=== PATIENT | female | born 1940 | race Caucasian/White ===

== ENCOUNTER 2019-03-07 09:56 | Inpatient (IN) | payer MEDICARE, BC ==
[2019-03-07] VITALS (14 sets, daily range): BP systolic 64–151; BP diastolic 3–83
[~2019-03-07] VITALS: Ht 157.5 cm; Wt 90.0 kg
--- NOTE | 2019-03-07 10:26 | NUR ---
PT SON MADELINE NARINDER CALLED CELL# [phone], REQUESTING CALL WHEN PLAN OF CARE OR ADMISSION IS DETERMINED.
--- NOTE | 2019-03-07 11:49 | NUR ---
[facility] REPORTED POSITIVE BLOOD CULTURE. GRAM NEG RODS. GUANAKITO MOSLEY RN AND DR. LOZANO
[2019-03-07] MEDS ORDERED: normal saline 1000ml 1,000 ML IV ONE (11:50)
[2019-03-07] MEDS ORDERED: LOSA100T57 PO (12:37)
[2019-03-07] MEDS ORDERED: ASPI-611 PO (12:37)
[2019-03-07] MEDS ORDERED: CARV6.253 PO (12:37)
[2019-03-07] MEDS ORDERED: ATOR20TA66 PO (12:37)
[2019-03-07] MEDS ORDERED: CITA20TA2 PO (12:37)
[2019-03-07] MEDS ORDERED: ACET-1013 PO (12:46)
[2019-03-07 12:48] LABS: BASOPHILS % (AUTO) 0.2 % (0-1); EOSINOPHILS % (AUTO) 0.1 % (0-6); HEMOGLOBIN 11.2 g/dl (12.0-16.0); LYMPHOCYTES # (AUTO) 0.6 X10'3 (1.1-4.8); LYMPHOCYTES % (AUTO) 4.5 % (21-51); MEAN CORPUSCULAR HEMOGLOBIN 30.5 PG (27.0-31.0); MEAN CORPUSCULAR HGB CONC 32.9 g/dL (33.0-36.5); MEAN CORPUSCULAR VOLUME 92.7 FL (78-98); MEAN PLATELET VOLUME 8.3 FL (7.4-10.4); MONOCYTES # (AUTO) 0.7 X10'3 (0-0.9); NEUTROPHILS # (AUTO) 10.8 X10'3 (1.8-7.7); NEUTROPHILS % (AUTO) 89.2 % (42-75); PLATELET COUNT 153 X10'3 (140-440); RED BLOOD COUNT 3.66 X10'6 (4.20-5.60); RED CELL DISTRIBUTION WIDTH 13.4 % (11.5-14.5); WHITE BLOOD COUNT 12.1 X10'3 (4.5-11.0)
[2019-03-07 13:00] LABS: ALANINE AMINOTRANSFERASE 28 U/L (12-78); ALBUMIN 2.8 G/DL (3.4-5.0); ALBUMIN/GLOBULIN RATIO 0.7 (1.1-1.5); ALKALINE PHOSPHATASE 68 IU/L (46-116); ANION GAP 2 (8-16); ASPARTATE AMINO TRANSFERASE 33 U/L (10-37); BILIRUBIN,TOTAL 0.5 MG/DL (0.1-1.0); BLOOD UREA NITROGEN 32 MG/DL (7-18); BUN/CREATININE RATIO 16.2 (6.6-38.0); CALCIUM 8.7 MG/DL (8.5-10.1); CHLORIDE 102 MMOL/L (99-107); CREATININE 1.98 MG/DL (0.40-0.90); GLUCOSE 194 MG/DL (70-104); MAGNESIUM 1.6 MG/DL (1.5-2.4); POTASSIUM 4.4 MMOL/L (3.5-5.1); SODIUM 134 MMOL/L (135-145); TOTAL CARBON DIOXIDE 29.8 MMOL/L (24-32); TOTAL PROTEIN 6.7 G/DL (6.4-8.2); eGFR 24 ML/MIN
[2019-03-07] MEDS ORDERED: labetalol 20mg/4ml (5mg/ml) syringe IV ONE (13:20)
--- NOTE | 2019-03-07 13:27 | NUR ---
DR CALDERON IN ROOM TO EVAL PT FOR PROCEDURE. ADMIN MEDICATION ORDERED BY DR LOZANO FOR HTN.
[2019-03-07] MEDS ORDERED: HYDROcodone/acetaminophen 5mg/325mg tablet PO PRN (13:30)
[2019-03-07] MEDS ORDERED: potassium Cl 20 mEq SR tablet PO PRN ×2 (13:30)
[2019-03-07] MEDS ORDERED: magnesium 4gm in 100ml NS 100 ML IV PRN (13:30)
[2019-03-07] MEDS ORDERED: magnesium 2GM in 50ml NS 50 ML IV PRN (13:30)
[2019-03-07] MEDS ORDERED: ondansetron/PF 4mg/2ml inj IV PRN ×2 (13:30→16:00)
[2019-03-07] MEDS ORDERED: magnesium Cl slow-release 64mg tablet PO PRN (13:30)
[2019-03-07] MEDS ORDERED: HYDROcodone/acetaminophen 10/325mg tab PO PRN (13:30)
[2019-03-07] MEDS ORDERED: potassium CL 10mEq/100ml bag 100 ML IV PRN ×2 (13:30)
[2019-03-07] MEDS ORDERED: morphine 2 MG/ML inj. syringe IV PRN ×2 (13:30)
[2019-03-07] MEDS ORDERED: acetaminophen 325mg tablet PO PRN ×2 (13:30)
[2019-03-07] MEDS: normal saline 1000ml 1,000 ML IV SCH (13:48)
[2019-03-07] MEDS: K and/or MAG REPLACEMENT MC SCH (13:49)
--- NOTE | 2019-03-07 13:54 | NUR ---
ASSIST PT TO BSC TO VOID. PT DENIES PAIN.
--- NOTE | 2019-03-07 14:12 | NUR ---
GAY NURSE IN ROOM
[2019-03-07 14:35] LABS: HEMOGLOBIN A1C 9.4 % (4.5-6.2)
[2019-03-07] MEDS ORDERED: glucagon, human recombinant 1mg kit SUBCUT PRN (15:10)
[2019-03-07] MEDS ORDERED: dextrose ORAL solution 15 GM/59 ML bottle PO PRN ×2 (15:10)
[2019-03-07] MEDS ORDERED: MESSAGE TO PHARMACY PO ONE (15:10)
[2019-03-07] MEDS ORDERED: dextrose 50%-water 50ml dispensing syringe IV PRN ×2 (15:10)
--- NOTE | 2019-03-07 15:41 | NUR ---
PT'S SON'S LEAVE THE PHONE NUMBERS AND ARE GONE NOW. FIDENCIO: [phone]. NIYAH: [phone].
--- NOTE | 2019-03-07 15:43 | NUR ---
GEOVANY FROM OR CALLS WITH INSTRUCTIONS. EKG IS BEING DONE.
[2019-03-07] MEDS ORDERED: ringers solution, lacted 1,000 ML IV SCH (15:56)
--- NOTE | 2019-03-07 15:58 | NUR ---
ASSIST PT TO BSC TO VOID PER HER REQUEST. PT IS NOW BEING TAKEN TO SURGERY BY QUINTON.
--- NOTE | 2019-03-07 15:59 | NUR ---
PER OR'S REQUEST BY GEOVANY THE KIMSYN ABX HAS BEEN SENT UP WITH PT.
[2019-03-07] MEDS ORDERED: proCHLORperazine 10 MG/2 ml inj IV PRN (16:00)
[2019-03-07] MEDS ORDERED: morphine 4 MG/ML inj SYRINge IV PRN ×2 (16:00)
[2019-03-07] MEDS ORDERED: meperidine/PF 25mg/ml syringe IV PRN ×3 (16:00)
[2019-03-07] MEDS ORDERED: iohexol 300 MG/1 ML 50ml polymer ONE (16:03)
[2019-03-07] MEDS ORDERED: sevoflurane 250ml liquid IH ONE (16:08)
[2019-03-07] MEDS ORDERED: ondansetron/PF 4mg/2ml inj ONE (16:08)
[2019-03-07] MEDS ORDERED: dexamethasone sod phosphate 10mg/ml inj ONE (16:08)
[2019-03-07] MEDS ORDERED: fentaNYL/PF 50MCG/1 ML 2ML syringe ONE (16:16)
[2019-03-07] MEDS ORDERED: midazolam 2 mg/2 ml injection ONE (16:16)
[2019-03-07] MEDS ORDERED: propofol inj 20 ML IV ONE (16:17)
[2019-03-07] MEDS ORDERED: LIDOcaine 2% (20mg/ml) 5ml vial ONE (16:17)
--- NOTE | 2019-03-07 17:02 | NUR ---
Received from OR via SURGICAL BED , accompanied by Anesthesiologist GERALD and report given by Anesthesiolgist. PATIENT WITH 20G PIV IN LEFT UE RUNNING LR AT 100. 10L MASK ON WITH 99% SATURATIONS. Addendum: 03/07/19 at 1712 by Mike Parkinson RN RN Amended: Links added.
--- NOTE | 2019-03-07 17:42 | NUR ---
ALL CRITERIA FOR TRANSFER TO THE FLOOR HAS BEEN ACHIEVED. VSS. BED LOW, CALL LIGHT AND VS. SET IN PLACE. RN PRESENT TO ACCEPT CARE. PATIENT RESTING COMFORTABLY IN BED. BELONGINGS SENT WITH PATIENT. DRESSINGS CDI. JARETH FISH AWARE PATIENT HAS ARRIVED. Addendum: 03/07/19 at 1745 by Mike Dupont - JARETH TEMPLETON Amended: Links added.
--- NOTE | 2019-03-07 17:50 | NUR ---
Received report from JARETH Mckeon. Patient arrived to floor. No complaints, VSS.
--- NOTE | 2019-03-07 18:15 | NUR ---
Problems reprioritized. Patient report given, questions answered & plan of care reviewed with JARETH Emerson.
[2019-03-07] MEDS: piperacillin/tazo 3.375gm/50ml 50 ML IV SCH (19:00)
[2019-03-07] MEDS: carvedilol 6.25mg tablet PO SCH (20:00)
[2019-03-07] MEDS: docusate sod 100mg capsule PO SCH (20:54)
[2019-03-07] MEDS: heparin, porcine 5000 units/ml vial SQ SCH (20:56)
[2019-03-07] MEDS: insulin glargine (Lantus) pen - multi-dose SQ SCH (21:00)
[2019-03-07] MEDS ORDERED: temazepam 15mg capsule PO PRN (21:00)
[2019-03-08] VITALS: BP 138/53
[2019-03-08] MEDS: normal saline 1000ml 1,000 ML IV SCH ×3 (00:05→17:33)
[2019-03-08] MEDS: piperacillin/tazo 3.375gm/50ml 50 ML IV SCH ×3 (00:05→15:49)
[2019-03-08 06:15] LABS: BASOPHILS % (AUTO) 0 % (0-1); EOSINOPHILS % (AUTO) 0.1 % (0-6); HEMATOCRIT 29.4 % (35.0-45.0); HEMOGLOBIN 9.9 g/dl (12.0-16.0); LYMPHOCYTES # (AUTO) 0.4 X10'3 (1.1-4.8); LYMPHOCYTES % (AUTO) 3.8 % (21-51); MEAN CORPUSCULAR HEMOGLOBIN 31.1 PG (27.0-31.0); MEAN CORPUSCULAR HGB CONC 33.5 g/dL (33.0-36.5); MEAN CORPUSCULAR VOLUME 92.9 FL (78-98); MEAN PLATELET VOLUME 9.1 FL (7.4-10.4); MONOCYTES # (AUTO) 0.4 X10'3 (0-0.9); MONOCYTES % (AUTO) 3.7 % (2-12); NEUTROPHILS # (AUTO) 10.2 X10'3 (1.8-7.7); NEUTROPHILS % (AUTO) 92.4 % (42-75); PLATELET COUNT 140 X10'3 (140-440); RED BLOOD COUNT 3.17 X10'6 (4.20-5.60); RED CELL DISTRIBUTION WIDTH 13.5 % (11.5-14.5); WHITE BLOOD COUNT 11.1 X10'3 (4.5-11.0)
--- NOTE | 2019-03-08 06:20 | NUR ---
Patient in room [facility]. I have received report from Idania TEMPLETON and had the opportunity to ask questions and assume patient care.
--- NOTE | 2019-03-08 06:40 | NUR ---
Problems reprioritized. Patient report given, questions answered & plan of care reviewed with Kelsie TEMPLETON. Addendum: 03/08/19 at 0640 by Idania Pascal RN Amended: Links added.
[2019-03-08 06:53] LABS: ALBUMIN 2.3 G/DL (3.4-5.0); ANION GAP 11 (8-16); BLOOD UREA NITROGEN 38 MG/DL (7-18); BUN/CREATININE RATIO 20.9 (6.6-38.0); CALCIUM 8.4 MG/DL (8.5-10.1); CHLORIDE 106 MMOL/L (99-107); CREATININE 1.82 MG/DL (0.40-0.90); GLUCOSE 279 MG/DL (70-104); MAGNESIUM 1.9 MG/DL (1.5-2.4); POTASSIUM 5.2 MMOL/L (3.5-5.1); SODIUM 138 MMOL/L (135-145); eGFR 27 ML/MIN
[2019-03-08 07:21] VITALS: BP 110/69
[2019-03-08] MEDS: K and/or MAG REPLACEMENT MC SCH ×2 (07:26→20:00)
[2019-03-08] MEDS: docusate sod 100mg capsule PO SCH ×2 (07:39→20:25)
[2019-03-08] MEDS: atorvastatin 20mg tablet PO SCH (07:39)
[2019-03-08] MEDS: carvedilol 6.25mg tablet PO SCH ×2 (07:39→20:25)
[2019-03-08] MEDS: citalopram 20mg tablet PO SCH (07:39)
[2019-03-08] MEDS: heparin, porcine 5000 units/ml vial SQ SCH ×2 (07:40→20:24)
[2019-03-08] MEDS ORDERED: losartan 50mg tablet PO SCH (08:00)
--- NOTE | 2019-03-08 08:33 | NUR ---
Dr. Donovan informed of K of 5.2. No new orders at this time.
[2019-03-08] MEDS: insulin Lispro (HumaLOG) vial - multi-dose SQ SCH ×4 (09:09→21:31)
[2019-03-08 11:47] VITALS: BP 113/41
--- NOTE | 2019-03-08 14:48 | NUR ---
DM consult, A1c is 9.4; patient given written DM education handout with verbal review with referral to outpatient DM education class. Addendum: 03/08/19 at [address] Amended: Links added.
--- NOTE | 2019-03-08 18:32 | NUR ---
Problems reprioritized. Patient report given, questions answered & plan of care reviewed with Idania TEMPLETON.
[2019-03-08 19:00] VITALS: BP 125/64
[2019-03-08] MEDS: insulin glargine (Lantus) pen - multi-dose SQ SCH (21:30)
--- NOTE | 2019-03-08 23:00 | NUR ---
Dr Amaya Notified of pt having SOB and wheezes not present during time of assessment. Pt was put on 2 L with O2 94%, On RA pt was 90%, and was made aware of NS@100, which was decreased at time of SOB. New order for chest x-ray. Addendum: 03/08/19 at 2325 by Idania Pascal RN Amended: Links added.
[2019-03-08] MEDS ORDERED: furosemide 20 MG/2 ML vial IV ONE (23:50)
[2019-03-09] VITALS: BP 164/68
[2019-03-09] MEDS: piperacillin/tazo 3.375gm/50ml 50 ML IV SCH ×3 (00:02→17:39)
[2019-03-09 04:15] VITALS: BP 206/78
[2019-03-09 04:30] VITALS: BP 202/94
--- NOTE | 2019-03-09 04:48 | NUR ---
MESSAGE: sent to Dr. Amaya : Senia WallisA BP 202/94, 206/78 HR 90. Addendum: 03/09/19 at 0449 by Idania Pascal RN Amended: Links added.
[2019-03-09] MEDS ORDERED: hydrALAZINE 20mg/ml inj. IV ONE (05:05)
--- NOTE | 2019-03-09 05:06 | NUR ---
Orders received for IV Hydralazine x1. Addendum: 03/09/19 at 0509 by Idania Pascal RN SRI NOTE
--- NOTE | 2019-03-09 05:07 | NUR ---
ORDERS RECEIVED FOR IV HYDRALAZINE X1 Addendum: 03/09/19 at 0508 by Idania Pascal RN Amended: Links added.
[2019-03-09 05:44] LABS: ALBUMIN 2.7 G/DL (3.4-5.0); ANION GAP 7 (8-16); BLOOD UREA NITROGEN 47 MG/DL (7-18); BUN/CREATININE RATIO 23.9 (6.6-38.0); CALCIUM 9.3 MG/DL (8.5-10.1); CHLORIDE 106 MMOL/L (99-107); CREATININE 1.97 MG/DL (0.40-0.90); GLUCOSE 211 MG/DL (70-104); MAGNESIUM 1.9 MG/DL (1.5-2.4); POTASSIUM 4.8 MMOL/L (3.5-5.1); SODIUM 138 MMOL/L (135-145); TOTAL CARBON DIOXIDE 24.8 MMOL/L (24-32); eGFR 25 ML/MIN
[2019-03-09 05:53] LABS: BASOPHILS % (AUTO) 0.1 % (0-1); EOSINOPHILS % (AUTO) 0.2 % (0-6); HEMATOCRIT 33.8 % (35.0-45.0); HEMOGLOBIN 11.1 g/dl (12.0-16.0); LYMPHOCYTES # (AUTO) 0.6 X10'3 (1.1-4.8); LYMPHOCYTES % (AUTO) 4.4 % (21-51); MEAN CORPUSCULAR HEMOGLOBIN 30.8 PG (27.0-31.0); MEAN CORPUSCULAR VOLUME 93.5 FL (78-98); MEAN PLATELET VOLUME 8.7 FL (7.4-10.4); MONOCYTES # (AUTO) 1.2 X10'3 (0-0.9); MONOCYTES % (AUTO) 8.5 % (2-12); NEUTROPHILS # (AUTO) 12.6 X10'3 (1.8-7.7); NEUTROPHILS % (AUTO) 86.8 % (42-75); PLATELET COUNT 202 X10'3 (140-440); RED BLOOD COUNT 3.61 X10'6 (4.20-5.60); RED CELL DISTRIBUTION WIDTH 13.4 % (11.5-14.5); WHITE BLOOD COUNT 14.5 X10'3 (4.5-11.0)
--- NOTE | 2019-03-09 06:15 | NUR ---
Patient in room [facility]. I have received report from Idania TEMPLETON and had the opportunity to ask questions and assume patient care.
--- NOTE | 2019-03-09 06:37 | NUR ---
Problems reprioritized. Patient report given, questions answered & plan of care reviewed with Colleen He. Addendum: 03/09/19 at 0637 by Idania Pascal RN Amended: Links added.
[2019-03-09 07:42] VITALS: BP 142/68
[2019-03-09] MEDS: citalopram 20mg tablet PO SCH (07:59)
[2019-03-09] MEDS: carvedilol 6.25mg tablet PO SCH ×2 (07:59→20:31)
[2019-03-09] MEDS: atorvastatin 20mg tablet PO SCH (07:59)
[2019-03-09] MEDS: K and/or MAG REPLACEMENT MC SCH ×2 (08:00→20:00)
[2019-03-09] MEDS: heparin, porcine 5000 units/ml vial SQ SCH ×2 (08:00→20:31)
[2019-03-09] MEDS: docusate sod 100mg capsule PO SCH ×2 (08:00→20:00)
[2019-03-09] MEDS: insulin Lispro (HumaLOG) vial - multi-dose SQ SCH ×3 (08:40→18:44)
[2019-03-09 11:22] VITALS: BP 138/55
[2019-03-09] MEDS ORDERED: furosemide 20 MG/2 ML vial IV ONE (12:15)
--- NOTE | 2019-03-09 12:20 | NUR ---
Dr. Donovan informed of chest xray results, pt wheezing/SOB, desaturation to 80% last night on room air, increased WBC to 14.5 from 11.1, pt having loose stool all night and today. MD ordered ABG, lasix 20mg IV once, procalcitonin, DC IVF, Cdiff for loose stool, and to place on 2L O2. Will continue to monitor. Family at bedside during MDs assessment.
[2019-03-09 12:50] LABS: ABG BASE EXCESS -1.2 mmol/L (-2.0-3.0); ABG HCO3 24.1 mmol/L (22.0-26.0); ABG OXYGEN SATURATION 92.6 % (95-98); ABG PCO2 (T) 42.7 mmHg (35.0-45.0); ABG PH (T) 7.369 (7.350-7.450); ABG PO2 (T) 63.3 mmHg (83-108); ALLEN'S TEST Positive; FCOHb 0.4 % (0.5-1.5); FMetHb 0.3 % (0.3-1.12); TOTAL HEMOGLOBIN 11.9 G/dl (12.0-16.0)
[2019-03-09] MEDS ORDERED: VANCOmycin 1250MG/NS 250ml Bag 250 ML IV SCH (16:00)
[2019-03-09 17:20] LABS: BASOPHILS % (AUTO) 0.4 % (0-1); EOSINOPHILS # (AUTO) 0.1 X10'3 (0-0.9); EOSINOPHILS % (AUTO) 0.8 % (0-6); HEMATOCRIT 36.8 % (35.0-45.0); LYMPHOCYTES # (AUTO) 0.7 X10'3 (1.1-4.8); LYMPHOCYTES % (AUTO) 5.5 % (21-51); MEAN CORPUSCULAR HEMOGLOBIN 30.5 PG (27.0-31.0); MEAN CORPUSCULAR HGB CONC 32.7 g/dL (33.0-36.5); MEAN CORPUSCULAR VOLUME 93.4 FL (78-98); MEAN PLATELET VOLUME 8.6 FL (7.4-10.4); MONOCYTES # (AUTO) 1.1 X10'3 (0-0.9); MONOCYTES % (AUTO) 8.1 % (2-12); NEUTROPHILS # (AUTO) 11.2 X10'3 (1.8-7.7); NEUTROPHILS % (AUTO) 85.2 % (42-75); PLATELET COUNT 232 X10'3 (140-440); RED BLOOD COUNT 3.94 X10'6 (4.20-5.60); RED CELL DISTRIBUTION WIDTH 13.4 % (11.5-14.5); WHITE BLOOD COUNT 13.1 X10'3 (4.5-11.0)
--- NOTE | 2019-03-09 18:43 | NUR ---
Problems reprioritized. Patient report given, questions answered & plan of care reviewed with Tracie TEMPLETON.
[2019-03-09 19:00] VITALS: BP 190/86
[2019-03-09] MEDS: insulin glargine (Lantus) pen - multi-dose SQ SCH (21:35)
[2019-03-10] VITALS: BP 161/79
[2019-03-10] MEDS: piperacillin/tazo 3.375gm/50ml 50 ML IV SCH ×3 (00:47→16:00)
[2019-03-10 05:21] LABS: ALBUMIN 2.4 G/DL (3.4-5.0); ANION GAP 9 (8-16); BLOOD UREA NITROGEN 37 MG/DL (7-18); BUN/CREATININE RATIO 23.6 (6.6-38.0); CALCIUM 8.8 MG/DL (8.5-10.1); CHLORIDE 105 MMOL/L (99-107); CREATININE 1.57 MG/DL (0.40-0.90); GLUCOSE 156 MG/DL (70-104); MAGNESIUM 1.6 MG/DL (1.5-2.4); POTASSIUM 4.1 MMOL/L (3.5-5.1); SODIUM 142 MMOL/L (135-145); TOTAL CARBON DIOXIDE 28.5 MMOL/L (24-32); eGFR 32 ML/MIN
[2019-03-10 05:58] LABS: BASOPHILS % (AUTO) 0.1 % (0-1); EOSINOPHILS # (AUTO) 0.1 X10'3 (0-0.9); EOSINOPHILS % (AUTO) 1.8 % (0-6); HEMATOCRIT 32.3 % (35.0-45.0); HEMOGLOBIN 10.8 g/dl (12.0-16.0); LYMPHOCYTES # (AUTO) 0.8 X10'3 (1.1-4.8); LYMPHOCYTES % (AUTO) 10.2 % (21-51); MEAN CORPUSCULAR HEMOGLOBIN 30.9 PG (27.0-31.0); MEAN CORPUSCULAR HGB CONC 33.4 g/dL (33.0-36.5); MEAN CORPUSCULAR VOLUME 92.3 FL (78-98); MEAN PLATELET VOLUME 8.3 FL (7.4-10.4); MONOCYTES # (AUTO) 0.9 X10'3 (0-0.9); NEUTROPHILS # (AUTO) 5.9 X10'3 (1.8-7.7); NEUTROPHILS % (AUTO) 75.9 % (42-75); PLATELET COUNT 202 X10'3 (140-440); RED CELL DISTRIBUTION WIDTH 13.7 % (11.5-14.5); WHITE BLOOD COUNT 7.8 X10'3 (4.5-11.0)
--- NOTE | 2019-03-10 06:44 | NUR ---
Patient in room [facility]. I have received report from Idania TEMPLETON and had the opportunity to ask questions and assume patient care.
[2019-03-10] MEDS: atorvastatin 20mg tablet PO SCH (07:25)
[2019-03-10] MEDS: carvedilol 6.25mg tablet PO SCH (07:25)
[2019-03-10] MEDS: citalopram 20mg tablet PO SCH (07:25)
[2019-03-10] MEDS: heparin, porcine 5000 units/ml vial SQ SCH (07:26)
[2019-03-10] MEDS: docusate sod 100mg capsule PO SCH (07:26)
[2019-03-10] MEDS: K and/or MAG REPLACEMENT MC SCH (07:27)
[2019-03-10 07:30] VITALS: BP 195/77
[2019-03-10] MEDS: insulin Lispro (HumaLOG) vial - multi-dose SQ SCH ×2 (08:33→13:58)
--- NOTE | 2019-03-10 09:17 | NUR ---
CDiff sent, results neg.
--- NOTE | 2019-03-10 09:33 | NUR ---
sent notice to pharmacy in need of Zosyn from 0800
[2019-03-10 11:38] VITALS: BP 115/55
--- NOTE | 2019-03-10 12:18 | NUR ---
Patient in the shower.
[2019-03-10] MEDS ORDERED: diphenhydrAMINE 25 MG/10 ML UD oral solution PO PRN (13:15)
[2019-03-10] MEDS ORDERED: LEVO500T2 PO (15:41)
--- NOTE | 2019-03-10 16:09 | NUR ---
Patient discharged on nursing end, waiting on family out of town for pickup.
--- NOTE | 2019-03-10 17:18 | NUR ---
Patient home with family, education completed at discharge, patient aware of when next doses are to be taken for home medications. Patient belongings taken home. Patient WC to lobby with family members. DM2 packet given to patient, A1C on paper work. Patient is aware of A1C currently.
[2019-03-12] MEDS ORDERED: VANCOMYCIN LEVEL IV ONE (15:30)
== END 2019-03-10 17:13 | disposition home or self-care (01) | DRG 661 ==
LOC: ER 09:57 → ED HOLD 13:27 → SUR 3N 13:31 → CMPBEDREQ 03-09 12:18 → SUR 3N 03-10 09:01
PROVIDERS: ADMIT Internal Medicine; ATTEND Internal Medicine
PROC: BT1D1ZZ Fluoroscopy of Right Kidney, Ureter and Bladder using Low Osmolar Contrast (ICD-10-PCS; 2019-03-07)
PROC: 0TCB8ZZ Extirpation of Matter from Bladder, Via Natural or Artificial Opening Endoscopic (ICD-10-PCS; 2019-03-07)
PROC: 0T768DZ Dilation of Right Ureter with Intraluminal Device, Via Natural or Artificial Opening Endoscopic (ICD-10-PCS; principal; 2019-03-07 16:08)
DX: N13.6 Pyonephrosis (principal); E11.65 Type 2 diabetes mellitus with hyperglycemia; E78.00 Pure hypercholesterolemia, unspecified; E78.5 Hyperlipidemia, unspecified; F32.9 Major depressive disorder, single episode, unspecified; I10 Essential (primary) hypertension; E66.9 Obesity, unspecified; M54.9 Dorsalgia, unspecified; T19.1XXA Foreign body in bladder, initial encounter; Z79.4 Long term (current) use of insulin; Z90.710 Acquired absence of both cervix and uterus; Z90.49 Acquired absence of other specified parts of digestive tract; Z68.36 Body mass index [BMI] 36.0-36.9, adult
CPT/HCPCS: 36415; 36600; 71045; 76000; 80048; 80053; 82803; 82948; 83036; 83605; 83735; 84145; 85018; 85025; 87040; 87081; 88305; 88313; 93005; 96361; 96374; 99285; A4618; C1758; C1769; C2617; G0378; J0360; J1100; J1644; J1815; J1940; J2001; J2175; J2250; J2405; J2543; J2704; J3010; J3370; J3490; J7030; J7120; Q9967